=== PATIENT | male | born 1990 | race Hispanic/Latino ===

== ENCOUNTER 2017-02-23 20:21 | Emergency (ER) | payer SELFPAY ==
[~2017-02-23] VITALS: Ht 157.5 cm; Wt 68.2 kg
[2017-02-23 20:26] VITALS: BP 124/77; PULSE 128; RESP 18; O2SAT 96
[2017-02-23] MEDS ORDERED: 0.9% Sodium Chloride 1,000 ML IV ONE (21:23)
--- NOTE | 2017-02-23 21:33 | ED.REPORT ---
HPI-Headache Date of Service Feb 23, 2017 ED Provider: Bk Perla MD The patient is a previously healthy 26 yo male who presents to the ED for 2-day history of fever, chills, headache, and generalized myalgia. He reports the fever has been from 101.9-102.6, which improves with Tylenol. He states that the entire head is throbbing and rates 9/10 on the pain scale. The headache is worse with movement, but he denies any neck stiffness. However, his entire body is achy. Other associated symptoms include malaise, decreased appetite, decreased oral intake, and some epigastric abdominal pain. He denies nausea, vomiting, diarrhea, upper respiratory symptoms, cough, SOB, CP, vision change, photosensitivity, altered mental status, or urinary symptoms. He denies any skin rash, but his family thinks he looks a little pale. He does not know his immunization status and never gets flu shot. He lives in a crowded house with his other relatives. His mother had similar symptoms a week ago and got better now. 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 Nursing Notes Stated Complaint: FEVER, ZAZUETA, BODY PAINS Chief Complaint: General Complaint Nursing Notes Reviewed: Yes Allergies: Coded Allergies: No Known Allergies (Unverified , 02/23/17) General Time Seen by MD: 21:01 Chief Complaint Headache Hx Obtained From: Patient, Other family... Arrived By: Walk-in Sudden in Onset?: Yes Onset Occurred: 2 days ago Symptom Duration: Since onset Location: : Generalized Quality: Aching, Throbbing Radiation: : Does not radiate Severity: Current: Moderate Severity: Maximum: Pain level 9 out of 10 Associated with: Reports: Fever, Pain, Denies: Aura motor, Aura visual, Confusion, Difficulty speaking, Lacrimation , Nasal congestion, Nausea, Numbness, Photophobia, Visual disturbance, Vomiting Additional Notes: Generalized body ache, epigastric abdominal pain Pertinent Negative: Pt denies other symptoms Exacerbated by: Head movement Pertinent Negative: Relieved by nothing Recent Healthcare: No recent doctor visit, No recent hospitalization Similar Sx Previous: No Risk-Headache )( SAH Risk Stratification RF Statements: No risk factors Past Medical History Past Medical History None Past Surgical History None Smoking History Never Smoker Social History Alcohol Use: Denies alcohol use Drug Use: Denies drug use Occupation works in construction to remodel houses Ambulatory Status Independent Review of Systems Basic Review of Systems Cardiovascular: No chest pain, No dyspnea on exertion, No orthopnea, No parox noct dyspnea, No palpitations : No dysuria, No frequency Allergy / Immune: No allergy Constitutional: Reports: Chills, Fatigue, Fever, Malaise, Weakness - generalized Eyes: Denies: Blurred bilateral, Discharge bilateral, Redness bilateral GI: Reports: Abdominal pain (epigastric), Anorexia, Denies: Diarrhea, Nausea, Vomiting Musculoskeletal: Reports: Back pain, Extremity pain, Joint pain, Lumbar pain, Myalgia, Denies: Extremity swelling Skin: Denies Diaphoresis, Denies Rash, Denies Swelling Neurologic: Reports: Headache, Weakness, Denies: Abnormal movement, Bladder dysfunction, Change LOC, Confusion, Dizziness, Focal weakness, Numbness, Vision change Psychiatric: Denies: Agitation, Anxiety, Change mental status, Confusion Complete sys rev & neg: except as marked. Physical Exam Initial Vital Signs Vital Signs (First) Date Time Temp Pulse Resp B/P Pulse Ox O2 Delivery O2 Flow Rate FiO2 02/23/17 20:26 38.1 128 18 124/77 96 Room Air Initial VS: Reviewed (tachycardia and fever), Vital signs abnormal General/Constitutional: Awake, Alert Distress / Hydration: Positive: Dehydration moderate, Distress mild Appearance / Presentation: Positive: Ill appearing/not toxic, In pain Head / Eyes: Atraumatic, Normocephalic, PERRL, EOMI, No periorbital swelling, No photophobia, No scleral icterus Neck: Atraumatic, Supple, No adenopathy, Non-tender Negative nuchal rididity. Both Brudzinski and Kernig signs are negative. However limited neck ROM due to headache. Neurologic: Oriented X3, Speech NL, No motor deficits, No sensory deficits ENT: Atraumatic, Airway patent, Mucous membranes moist, Pharynx NL, No peritonsillar abscess, No pooling of secretions Respiratory / Chest: Atraumatic, Breath sounds NL, Breath sounds = bilat, No respiratory distress, No rales, No wheezing, No retractions Cardiovascular: Heart rate NL, Regular rhythm, Heart sounds NL, No gallop, No murmurs, No rubs, Pulses = bilaterally Abdomen: Atraumatic, Soft, No guarding, No rebound, BS normoactive Tenderness/Guarding/Rebound: Positive: Tender epigastric Skin: Atraumatic, Color NL, No rash, Warm, Dry, Intact Psychiatric: Affect NL, Mood NL, Not suicidal Back: Atraumatic, Straight leg raise neg, No CVA tenderness Flank / Spine / Paraspinal: Positive: Lumbar paraspinal tend..., Thorac paraspinal tend... Interpretation & Diagnostics Lab Results Interpretation Result Diagram: 02/23/17214402/23/172144 Test 02/23/17 21:45 White Blood Count 7.5th/mm3 (3.8-10.1) Red Blood Count 5.13mil/mm3 (4.40-5.80) Hemoglobin 16.2g/dL (13.8-17.2) Hematocrit 45.1% (41.0-50.0) Mean Corpuscular Volume 87.9fL (81-100) Mean Corpuscular Hemoglobin 31.6pg (27.0-35.0) Mean Corpuscular Hemoglobin Concent 35.9% (32.0-37.0) Red Cell Distribution Width 12.3% (12.3-15.4) Platelet Count 170bil/L (150-400) Neutrophils (%) (Auto) 79.5% (40-74) Lymphocytes (%) (Auto) 12.2% (14-46) Monocytes (%) (Auto) 7.8% (4-12) Eosinophils (%) (Auto) 0.1% (0-5) Basophils (%) (Auto) 0.1% (0-3) Sodium Level 130mEq/L (134-144) Potassium Level 3.6mEq/L (3.5-5.2) Chloride Level 93mEq/L (97-108) Carbon Dioxide Level 22mmol/L (18-29) Blood Urea Nitrogen 12mg/dL (6-20) Creatinine 0.89mg/dL (0.76-1.27) Estimat Glomerular Filtration Rate 108mL/min (>59) Glucose Level 123mg/dL (60-99) Lactic Acid Level 1.1mmol/L (0.4-2.0) Calcium Level 9.0mg/dL (8.5-10.1) Total Bilirubin 0.5mg/dL (0.0-1.2) Aspartate Amino Transf (AST/SGOT) 22U/L (0-50) Alanine Aminotransferase (ALT/SGPT) 18U/L (0-44) Alkaline Phosphatase 72U/L (25-150) Total Protein 7.8g/dL (6.4-8.4) Albumin 4.0g/dL (3.4-5.0) Lab Results Interpretation: Low Na likely due to dehydration Re-Eval/Medical Decision Med Decision/Clinical Course A healthy 26 yo male presented to the ED for 2-day history of fever, chills, headache, and generalized myalgia. His mother had similar symptoms that were self-limited a week ago. Because of his unknown immunization status, meningitis is a possibility. However, given his mild symptoms and negative nuchal rigidity on exam, it is unlikely that his headache is due to meningitis. Therefore, lumbar puncture is not indicated. His symptoms are therefore more consistent with a viral infection. Patient initially appeared dehydrated and ill on exam. However, his symptoms significantly improve with IV hydration. His labs, including lactic acid, are normal. The low Na is likely due to dehydration. Patient is discharged with a diagnosis of nonspecific viral infection. He was recommended to drink plenty of fluid and rest. No antibiotic or antiviral is indicated in this healthy young man. All questions were answered and patient was discharged on stable condition. Re-Evaluation/Progress : Time of Eval: 22:45 )( Patient Status: Condition improved Re-Evaluation/Progress Note: Patient reports improvement of his symptoms and is able to tolerate PO intake. His [id number] asked about the flu medication as it helped her in the past. However, given his negative Influenza screen and patient appears well after the IV hydration, we do not think he needs Tamiflu. Supportive care was recommended. Counseled Regarding: Diagnosis, Lab results, Need for follow-up, When/why to return to ED Discharge & Departure Impression: Primary Impression: Viral infection Disposition: Home Discharge Condition All VS Reviewed: Yes Condition: Stable Additional Instructions: Your labs and flu test are all negative. Although your symptoms might be consistent with flu symptoms, the two flu strains that the antiviral medication works on was tested negative. Therefore, neither antibiotic or antiviral is indicated. In addition, most viral infection resolves with conservative treatment in a young, healthy person like yourself. A litter of fluid was given via IV today, and you report improvement of symptoms with it. It is likely that your headache is due to dehydration. Please make sure to drink plenty of fluid at home and get some rest. You can take Ibuprofen or Tylenol as needed for the fever and body ache. A work note is given for a couple days of rest. Please remember to wash your hands really well to prevent transmission. If you develop worsening headache, change in mental status, nausea, vomiting, or lethargy, please return to the ER. Referrals: NOPCP (PCP) Attending Statement The patient was seen and examined together with Dr. Katia Farrell and I agree with the history, exam and plan as outlined in the note above. Salvador Farrell DO Feb 23, 2017 21:33 Bk Perla MD Feb 24, 2017 06:23
[2017-02-23 21:54] LABS: BASOPHILS % (AUTO) 0.1 % (0-3); EOSINOPHILS % (AUTO) 0.1 % (0-5); MONOCYTES % (AUTO) 7.8 % (4-12); Mean Corpuscular Hemoglobin 31.6 pg (27.0-35.0); Mean Corpuscular Volume 87.9 fL (81-100); NEUTROPHILS % (AUTO) 79.5 % (40-74); Platelet Count 170 bil/L (150-400)
[2017-02-23 23:18] VITALS: BP 124/77; PULSE 112; RESP 18; O2SAT 96
== END 2017-02-23 23:19 | disposition home or self-care (01) ==
LOC: SED 20:21
DX: B34.9 Viral infection, unspecified (principal); R10.13 Epigastric pain
CPT/HCPCS: 36415; 80053; 81002; 83605; 85025; 87804; 96360; 99284; J7030